=== PATIENT | male | born 1995 | race Caucasian/White ===

== ENCOUNTER 2023-11-02 03:19 | Emergency (ER) | payer MEDICAID ==
[~2023-11-02] VITALS: Ht 165.1 cm; Wt 64.4 kg
[2023-11-02 04:31] VITALS: O2SAT 98
[2023-11-02] MEDS ORDERED: TETANUS, DIPHTHERIA, PERTUSSIS VAC/PF 0.5ML (>10YR OLD) IM ONE (08:00)
[2023-11-02] MEDS ORDERED: ACETAMINOPHEN 325MG TABLET PO ONE (08:00)
[2023-11-02] MEDS ORDERED: IBUPROFEN 600MG TABLET PO ONE (08:00)
[2023-11-02] MEDS ORDERED: CEPH500C2 MT (08:24)
[2023-11-02] MEDS ORDERED: IBUP-1523 MT (08:24)
[2023-11-02 09:12] VITALS: BP 126/82; PULSE 81; RESP 18; TEMP 98.6
== END 2023-11-02 09:13 | disposition home or self-care (01) ==
LOC: ER 03:19
DX: T24.201A Burn of second degree of unspecified site of right lower limb, except ankle and foot, initial encounter (principal); T79.9XXA Unspecified early complication of trauma, initial encounter; X08.8XXA Exposure to other specified smoke, fire and flames, initial encounter; Y93.89 Activity, other specified; Y92.89 Other specified places as the place of occurrence of the external cause; Y99.8 Other external cause status
CPT/HCPCS: 82542; 90715; 16020; 90471; 99283; Z7610 ×2; 16000